=== PATIENT | male | born 1995 | race Two or more races ===

== ENCOUNTER 2022-07-20 08:54 | Emergency (ER) | payer OTHER ==
[~2022-07-20] VITALS: Ht 180.3 cm; Wt 76.2 kg
[2022-07-20] MEDS ORDERED: PROTONIX40 MG PO (09:01)
== END 2022-07-20 13:22 | disposition home or self-care (01) ==
LOC: ER 08:54
DX: K29.70 Gastritis, unspecified, without bleeding (principal)